=== PATIENT | female | born 1985 | race Native Hawaiian/Other Pacific Islander ===

== ENCOUNTER 2016-09-18 22:20 | Emergency (ER) | payer OTHER ==
[~2016-09-18] VITALS: Ht 154.9 cm; Wt 117.9 kg
[~2016-09-18 22:20] MED LIST: CELEXA40 MG PO; CIPRO500 MG PO; ONDA4TAB3 PO
[2016-09-19 00:36] VITALS: BP 140/87; TEMP 98.4
== END 2016-09-19 00:37 | disposition home or self-care (01) ==
LOC: ED 22:20
DX: K08.89 Other specified disorders of teeth and supporting structures (principal)
CPT/HCPCS: 99283

== ENCOUNTER 2018-05-08 01:58 | Emergency (ER) | payer OTHER ==
[~2018-05-08] VITALS: Ht 154.9 cm; Wt 127.0 kg
[2018-05-08 02:14] VITALS: TEMP 97.3
[2018-05-08 02:34] LABS: PLATELET COUNT 346 K/uL (152-353)
[2018-05-08 02:55] LABS: POTASSIUM 3.6 mmol/L (3.6-5.2); SODIUM 138 mmol/L (136-145)
[2018-05-08 03:22] VITALS: BP 140/97
== END 2018-05-08 03:23 | disposition home or self-care (01) ==
LOC: ED 01:58
PROVIDERS: Family Medicine
DX: R07.89 Other chest pain (principal); R60.9 Edema, unspecified; E66.01 Morbid (severe) obesity due to excess calories; J01.90 Acute sinusitis, unspecified; R06.02 Shortness of breath
CPT/HCPCS: 36415; 80053; 82550; 82553; 83880; 84443; 84484; 85027; 85379; 93005; 99283

== ENCOUNTER 2018-10-14 08:20 | Emergency (ER) | payer OTHER ==
[~2018-10-14] VITALS: Ht 154.9 cm; Wt 127.0 kg
[2018-10-14 09:04] LABS: PLATELET COUNT 325 K/uL (152-353)
[2018-10-14 09:36] LABS: POTASSIUM 3.9 mmol/L (3.6-5.2)
[2018-10-14 10:30] VITALS: BP 130/80; TEMP 98
== END 2018-10-14 10:30 | disposition home or self-care (01) ==
LOC: ED 08:20
PROVIDERS: Family Medicine
DX: G43.909 Migraine, unspecified, not intractable, without status migrainosus (principal)
CPT/HCPCS: 80053; 85027; 96372; 99283; J3030

== ENCOUNTER 2019-11-14 10:29 | Outpatient (CLI) | payer BC | END 2019-11-14 20:28 | disposition home or self-care (01) | LOC: US 10:29 | DX: L25.9 Unspecified contact dermatitis, unspecified cause (principal); F41.9 Anxiety disorder, unspecified; M79.605 Pain in left leg; R60.0 Localized edema ==

== ENCOUNTER 2021-01-11 12:02 | Emergency (ER) | payer BC ==
[~2021-01-11] VITALS: Ht 154.9 cm; Wt 121.1 kg
[2021-01-11 13:04] LABS: PLATELET COUNT 273 K/uL (152-353)
[2021-01-11 13:14] LABS: POTASSIUM 3.7 mmol/L (3.6-5.2)
[2021-01-11 13:56] VITALS: BP 134/80; TEMP 98.9
== END 2021-01-11 13:56 | disposition home or self-care (01) ==
LOC: ED 12:02
PROVIDERS: Emergency Medicine
DX: K52.89 Other specified noninfective gastroenteritis and colitis (principal); Z86.16 Personal history of COVID-19
CPT/HCPCS: 80048; 81000; 85027; 96374; 96375; 99284; J1885; J2405

== ENCOUNTER 2021-01-24 10:32 | Emergency (ER) | payer BC ==
[~2021-01-24] VITALS: Ht 154.9 cm; Wt 121.1 kg
[2021-01-24 11:09] LABS: PLATELET COUNT 289 K/uL (152-353)
[2021-01-24 11:17] LABS: POTASSIUM 3.3 mmol/L (3.6-5.2)
[2021-01-24 12:44] VITALS: BP 125/72; TEMP 98.6
== END 2021-01-24 12:44 | disposition home or self-care (01) ==
LOC: ED 10:32
PROVIDERS: Hospitalist
DX: K52.89 Other specified noninfective gastroenteritis and colitis (principal); R11.2 Nausea with vomiting, unspecified; R19.7 Diarrhea, unspecified
CPT/HCPCS: 36415; 80053; 81000; 81025; 83690; 85027; 96360; 96375; 99284; J2405

== ENCOUNTER 2021-07-17 14:06 | Outpatient (CLI) | payer BC | END 2021-07-17 19:25 | disposition home or self-care (01) | LOC: RAD 14:06 | PROVIDERS: ATTEND Internal Medicine Sleep Medicine | DX: R06.00 Dyspnea, unspecified (principal) ==

== ENCOUNTER 2022-02-26 07:10 | Emergency (ER) | payer BC ==
[~2022-02-26] VITALS: Ht 154.9 cm; Wt 113.9 kg
[2022-02-26 07:19] VITALS: TEMP 99
[2022-02-26 08:10] LABS: PLATELET COUNT 235 K/uL (152-353)
[2022-02-26 08:15] LABS: POTASSIUM 3.8 mmol/L (3.6-5.2)
[2022-02-26 10:10] VITALS: BP 110/58
== END 2022-02-26 10:10 | disposition still patient (30) ==
LOC: ED 07:10
PROVIDERS: Emergency Medicine Emergency Medical Services
DX: B34.9 Viral infection, unspecified (principal); B02.9 Zoster without complications; G43.909 Migraine, unspecified, not intractable, without status migrainosus; R53.1 Weakness
CPT/HCPCS: 80048; 80307; 81002; 81025; 83735; 85027; 87502; 87651; 93005; 96365; 96372; 99284; J1885; J2405

== ENCOUNTER 2022-04-19 22:52 | Emergency (ER) | payer BC ==
[~2022-04-19] VITALS: Ht 154.9 cm; Wt 81.6 kg
[2022-04-20 00:45] VITALS: BP 113/60; TEMP 98
== END 2022-04-20 00:45 | disposition home or self-care (01) ==
LOC: ED 22:52
DX: G43.909 Migraine, unspecified, not intractable, without status migrainosus (principal)
CPT/HCPCS: 96372; 99282; J1885; J2550

== ENCOUNTER 2022-07-23 17:13 | Outpatient (CLI) | payer BC | END 2022-07-23 19:43 | disposition home or self-care (01) | LOC: RAD 17:13 | PROVIDERS: ATTEND Nurse Practitioner Family | DX: S67.01XA Crushing injury of right thumb, initial encounter (principal); Y92.89 Other specified places as the place of occurrence of the external cause ==